=== PATIENT | female | born 1970 | race Caucasian/White ===

== ENCOUNTER 2016-06-14 06:41 | Emergency (ER) | payer OTHER ==
[2016-06-14 06:07] LABS: BASOPHIL 0.4 % (0-2); EOSINOPHIL 2.8 % (0-5); HGB 11.1 g/dl (12.5-16.0); LYMPHOCYTE 30.7 % (15-48); MCH 22.8 pg (25.0-31.0); MCHC 30.8 g/dL (32.0-36.0); MCV 74.1 fL (78.0-100.0); MONOCYTE 7.8 % (0-12); MPV 7.9 fL (6.0-9.5); NEUTROPHIL 58.3 % (41-80); PLT 359 K/uL (150-400); RBC 4.86 M/uL (4.20-5.40); RDW 16.9 % (11.5-14.0); WBC 9.7 K/uL (4.0-10.5)
[2016-06-14 06:13] LABS: BILIRUBIN NEGATIVE (NEGATIVE); BLOOD NEGATIVE Ery/uL (NEGATIVE); CLARITY HAZY (CLEAR); COLOR YELLOW (YELLOW); GLUCOSE (U) NORMAL (NORMAL); KETONE (U) NEGATIVE (NEGATIVE); LEUKOCYTES NEGATIVE Leu/uL (NEGATIVE); NITRITE NEGATIVE (NEGATIVE); PROTEIN NEGATIVE (NEGATIVE); SPECIFIC GRAVITY >=1.030 (1.001-1.030); UROBILINOGEN 0.2 mg/dL (0.2-1.0); pH 5.5 (5.0-9.0)
[2016-06-14 06:27] LABS: CREATININE 0.6 mg/dL (0.5-1.0); POTASSIUM 3.9 mmol/L (3.5-5.1)
== END 2016-06-14 08:35 | disposition home or self-care (01) ==
LOC: FER 06:41
PROVIDERS: Emergency Medicine Emergency Medical Services
DX: S13.4XXA Sprain of ligaments of cervical spine, initial encounter (principal); S23.3XXA Sprain of ligaments of thoracic spine, initial encounter; S33.5XXA Sprain of ligaments of lumbar spine, initial encounter; R10.9 Unspecified abdominal pain; R51 Headache; F32.9 Major depressive disorder, single episode, unspecified; Z79.899 Other long term (current) drug therapy; W01.0XXA Fall on same level from slipping, tripping and stumbling without subsequent striking against object, initial encounter; Y92.009 Unspecified place in unspecified non-institutional (private) residence as the place of occurrence of the external cause
CPT/HCPCS: 36415; 70450; 72125; 72128; 72131; 73130; 73610; 80048; 81003; 85025; J1170; J1885; J1980; J2405

== ENCOUNTER 2016-06-17 06:19 | Emergency (ER) | payer OTHER | END 2016-06-17 11:38 | disposition home or self-care (01) | LOC: FER 06:19 | DX: G43.909 Migraine, unspecified, not intractable, without status migrainosus (principal); Z88.8 Allergy status to other drugs, medicaments and biological substances; Z88.7 Allergy status to serum and vaccine; Z82.3 Family history of stroke; Z82.0 Family history of epilepsy and other diseases of the nervous system; Z79.899 Other long term (current) drug therapy | CPT/HCPCS: 87450; 87804; 87899; J1885; J2175; J2405; J2765 ==